=== PATIENT | male | born 1935 | race Caucasian/White ===

== ENCOUNTER → 2019-08-17 15:06 | Outpatient (BNVA) | payer MEDICARE, SELFPAY | PROVIDERS: Family Provider Family Medicine; PCP Family Medicine; Visit Provider Urology | DX: R97.20 Elevated prostate specific antigen [PSA] (principal); N40.1 Benign prostatic hyperplasia with lower urinary tract symptoms | CPT/HCPCS: 81001 ==

== ENCOUNTER 2021-04-10 14:55 | Outpatient (CLI) | payer MEDICARE, SELFPAY ==
[2021-04-10 15:48] LABS: INR 3.47 (0.8-1.2)
== END 2021-04-10 14:56 | disposition home or self-care (01) ==
PROVIDERS: Family Provider Family Medicine; PCP Family Medicine; Visit Provider Family Medicine
DX: Z79.01 Long term (current) use of anticoagulants (principal)
CPT/HCPCS: 85610

== ENCOUNTER → 2021-04-11 09:24 | Outpatient (BNVA) | payer MEDICARE, SELFPAY | PROVIDERS: Family Provider Family Medicine; PCP Family Medicine; Visit Provider Nurse Practitioner Family | DX: N40.1 Benign prostatic hyperplasia with lower urinary tract symptoms (principal); R97.20 Elevated prostate specific antigen [PSA] | CPT/HCPCS: 81003; 84153 ==

== ENCOUNTER 2021-04-19 15:07 | Outpatient (CLI) | payer MEDICARE, SELFPAY ==
[2021-04-19 16:40] LABS: INR 6.97 (0.8-1.2)
== END 2021-04-19 15:08 | disposition home or self-care (01) ==
PROVIDERS: Family Provider Family Medicine; PCP Family Medicine; Visit Provider Family Medicine
DX: Z79.01 Long term (current) use of anticoagulants (principal)
CPT/HCPCS: 85610

== ENCOUNTER 2021-04-23 15:37 | Outpatient (CLI) | payer MEDICARE, SELFPAY ==
[2021-04-23 17:37] LABS: INR 3.33 (0.8-1.2)
== END 2021-04-23 15:38 | disposition home or self-care (01) ==
PROVIDERS: PCP Family Medicine; Visit Provider Internal Medicine Cardiovascular Disease
DX: Z79.01 Long term (current) use of anticoagulants (principal)
CPT/HCPCS: 85610

== ENCOUNTER 2021-04-26 11:47 | Outpatient (CLI) | payer MEDICARE, SELFPAY ==
[2021-04-26 12:11] LABS: INR 2.08 (0.8-1.2)
== END 2021-04-26 11:48 | disposition home or self-care (01) ==
LOC: LAB 11:51
PROVIDERS: PCP Family Medicine; Visit Provider Internal Medicine Cardiovascular Disease
DX: Z79.01 Long term (current) use of anticoagulants (principal)
CPT/HCPCS: 85610

== ENCOUNTER 2021-05-01 12:05 | Outpatient (CLI) | payer MEDICARE, SELFPAY ==
[2021-05-01 12:32] LABS: INR 3.07 (0.8-1.2)
== END 2021-05-01 12:06 | disposition home or self-care (01) ==
LOC: LAB 12:08
PROVIDERS: PCP Family Medicine; Visit Provider Internal Medicine Cardiovascular Disease
DX: Z79.01 Long term (current) use of anticoagulants (principal)
CPT/HCPCS: 85610

== ENCOUNTER 2021-05-08 11:36 | Outpatient (CLI) | payer MEDICARE, SELFPAY ==
[2021-05-08 12:30] LABS: INR 5.35 (0.8-1.2)
== END 2021-05-08 11:37 | disposition home or self-care (01) ==
LOC: LAB 11:39
PROVIDERS: PCP Family Medicine; Visit Provider Internal Medicine Cardiovascular Disease
DX: Z79.01 Long term (current) use of anticoagulants (principal)
CPT/HCPCS: 85610

== ENCOUNTER 2021-05-10 12:45 | Outpatient (CLI) | payer MEDICARE, SELFPAY ==
[2021-05-10 13:17] LABS: INR 2.84 (0.8-1.2)
== END 2021-05-10 12:46 | disposition home or self-care (01) ==
LOC: LAB 12:48
PROVIDERS: PCP Family Medicine; Visit Provider Internal Medicine Cardiovascular Disease
DX: Z79.01 Long term (current) use of anticoagulants (principal)
CPT/HCPCS: 85610

== ENCOUNTER 2021-05-17 16:52 | Outpatient (CLI) | payer MEDICARE, SELFPAY ==
[2021-05-17 17:43] LABS: INR 2.49 (0.8-1.2)
== END 2021-05-17 16:53 | disposition home or self-care (01) ==
LOC: LAB 16:58
PROVIDERS: PCP Family Medicine; Visit Provider Internal Medicine Cardiovascular Disease
DX: Z79.01 Long term (current) use of anticoagulants (principal)
CPT/HCPCS: 81003; 85610

== ENCOUNTER 2021-05-24 14:51 | Outpatient (CLI) | payer MEDICARE, SELFPAY ==
[2021-05-24 15:25] LABS: INR 2.96 (0.8-1.2)
== END 2021-05-24 14:52 | disposition home or self-care (01) ==
LOC: RAD 14:56
PROVIDERS: PCP Family Medicine; Visit Provider Internal Medicine Cardiovascular Disease
DX: Z79.01 Long term (current) use of anticoagulants (principal)
CPT/HCPCS: 85610

== ENCOUNTER 2021-06-07 13:50 | Outpatient (CLI) | payer MEDICARE, SELFPAY ==
[2021-06-07 14:59] LABS: INR 2.34 (0.8-1.2)
== END 2021-06-07 13:51 | disposition home or self-care (01) ==
LOC: LAB 13:58
PROVIDERS: PCP Family Medicine; Visit Provider Internal Medicine Cardiovascular Disease
DX: Z79.01 Long term (current) use of anticoagulants (principal)
CPT/HCPCS: 85610

== ENCOUNTER 2021-06-21 13:00 | Outpatient (CLI) | payer MEDICARE, SELFPAY ==
[2021-06-21 13:26] LABS: INR 4.18 (0.8-1.2)
== END 2021-06-21 13:01 | disposition home or self-care (01) ==
LOC: LAB 13:03
PROVIDERS: PCP Family Medicine; Visit Provider Internal Medicine Cardiovascular Disease
DX: Z79.01 Long term (current) use of anticoagulants (principal)
CPT/HCPCS: 85610

== ENCOUNTER 2021-06-28 14:42 | Outpatient (CLI) | payer MEDICARE, SELFPAY ==
[2021-06-28 16:57] LABS: INR 2.92 (0.8-1.2)
== END 2021-06-28 14:43 | disposition home or self-care (01) ==
LOC: LAB 14:48
PROVIDERS: PCP Family Medicine; Visit Provider Internal Medicine Cardiovascular Disease
DX: Z79.01 Long term (current) use of anticoagulants (principal)
CPT/HCPCS: 85610

== ENCOUNTER 2021-07-05 17:46 | Outpatient (CLI) | payer MEDICARE, SELFPAY ==
[2021-07-05 18:45] LABS: INR 2.43 (0.8-1.2)
== END 2021-07-05 17:47 | disposition home or self-care (01) ==
LOC: LAB 17:52
PROVIDERS: PCP Family Medicine; Visit Provider Internal Medicine Cardiovascular Disease
DX: Z79.01 Long term (current) use of anticoagulants (principal)
CPT/HCPCS: 85610

== ENCOUNTER 2021-07-12 11:16 | Outpatient (CLI) | payer MEDICARE, SELFPAY | END 2021-07-12 11:17 | disposition home or self-care (01) | PROVIDERS: PCP Family Medicine; Visit Provider Internal Medicine Cardiovascular Disease | DX: Z79.01 Long term (current) use of anticoagulants (principal); Z51.81 Encounter for therapeutic drug level monitoring | CPT/HCPCS: 85610 ==

== ENCOUNTER 2021-07-19 13:05 | Outpatient (CLI) | payer MEDICARE, SELFPAY ==
[2021-07-19 13:49] LABS: INR 1.98 (0.8-1.2)
== END 2021-07-19 13:06 | disposition home or self-care (01) ==
PROVIDERS: PCP Family Medicine; Visit Provider Internal Medicine Cardiovascular Disease
DX: Z79.01 Long term (current) use of anticoagulants (principal)
CPT/HCPCS: 85610

== ENCOUNTER 2022-01-14 14:48 | Emergency (ER) | payer MEDICARE, SELFPAY ==
[2022-01-14] VITALS (12 sets, daily range): BP systolic 108–149; BP diastolic 63–79; PULSE 60–81; RESP 16–28; TEMP 36.7; O2SAT 81–98
--- NOTE | 2022-01-14 14:50 | W.ED.WEAKNES ---
HPI - Weakness General: Chief complaint: Weakness Stated complaint: WEAKNESS Time Seen by Provider: 01/14/22 14:49 Limitations: altered mental status (?baseline dementia) History of Present Illness: Mr. Urrutia is a 86-year-old gentleman with history of chronic anticoagulation use presenting to the emergency department due to fall with generalized weakness. Fall was 3 days ago and circumstances are somewhat unclear. He endorses back pain since that time and also abdominal pain. Per supplemental history he was working with physical therapy and they noted him to be significantly weaker than normal. He has noted dark urine. History otherwise limited by mental status. Review of Systems General: Reports: ROS unobtainable due to mental status PFSH ED PFSH: Medical History (Updated 01/14/22 @ 19:49 by Jeffrey Mejia MD) Atrial fibrillation BPH loc w urin obs/LUTS Elevated PSA Essential hypertension T12 compression fracture Venous stasis dermatitis Surgical History History of appendectomy History of bilateral cataract extraction History of tonsillectomy History of total knee replacement History of total left hip arthroplasty Family History Mother , AT AGE 98 No problems noted. Father , AT 96 No problems noted. Other Cancer Stroke Social History Smoking and tobacco status: never smoked Alcohol intake: current Alcohol intake frequency: 3 or more drinks per day Marital status: Current occupational status: retired History of recent travel: No Physical Exam Const: COMMON NORMALS: alert GENERAL APPEARANCE: cooperative and well developed HENMT: COMMON NORMALS: normocephalic and atraumatic HEAD & SCALP: normocephalic and atraumatic THROAT: posterior oropharynx normal OTHER: No mark signs or raccoon eyes. No hemotympanum. No otorrhea or rhinorrhea. Jaw alignment normal. Dentition baseline. No obvious bony step-offs. No septal hematoma. No evidence of ocular entrapment. Eye: COMMON NORMALS: conjunctivae normal CONJUNCTIVA: Yes conjunctivae normal SCLERA: sclerae normal Neck/C-Spine: COMMON NORMALS: supple GENERAL: Yes trachea midline Chest: CHEST: Yes tenderness Resp: COMMON NORMALS: clear to auscultation bilaterally EFFORT & INSPECTION: Yes able to speak in complete sentences AUSCULTATION: clear to auscultation bilaterally Cardio: COMMON NORMALS: regular rate and regular rhythm RATE: regular rate RHYTHM: regular rhythm GI: COMMON NORMALS: Soft to palpation PALPATION: Yes Soft to palpation, Yes Tenderness to palpation present (GI), No Guarding due to palpation present (GI) and No Rigid due to palpation Extremity: GENERAL: Yes normal exam except as noted and No edema Neuro: COMMON NORMALS: moves all extremities SENSORIUM/ORIENTATION: Yes alert and Yes Orientation impaired Course Vital Signs: Vital signs: Vital Signs Temperature 98.1 F 01/14/22 14:55 Pulse Rate 61 01/14/22 20:00 Respiratory Rate 18 01/14/22 20:00 Blood Pressure 148/70 01/14/22 20:00 Pulse Oximetry 98 01/14/22 20:00 Oxygen Delivery Me thod 01/14/22 14:55 MDM - Weakness Medical Decision Making 86-year-old lady presenting with generalized symptoms after a fall. Limited history secondary to patient's mental status. Head to toe exam performed as above. EKG shows electronically paced rhythm Labs notable for no leukocytosis, macrocytic anemia present. Metabolic panel without significant derangement to explain symptoms, creatinine is mildly elevated though most recent baseline is very remote. 2-hour delta troponin is negative. CT head, cervical spine negative for acute traumatic injury. CT chest abdomen pelvis notable for acute compression fracture of the superior endplate of T12 which likely explains some degree of patient symptoms. TLSO brace ordered. The results of ED evaluation were discussed with the patient including prescriptions and/or symptomatic cares (if applicable) including appropriate and responsible use, followup plan, and return precautions. The patient verbalized understanding and felt safe for discharge.. Medical Records I reviewed the patient's medical records. Lab Data I reviewed the patient's lab results. : 01/14/22 15:10 01/14/22 15:10 Radiology Impressions Cervical Spine CT 01/14/22 15:08 IMPRESSION: No acute findings. Chest/Abdomen/Pelvis CT 01/14/22 15:08 IMPRESSION: 1. Acute compression fracture of the superior endplate of T12. 2. Chronic appearing moderate compression deformity of T11. IMPRESSION: No acute traumatic intra-abdominal findings. Head CT 01/14/22 15:08 IMPRESSION: 1. No acute intracranial abnormality. 2. Advanced diffuse cerebral atrophy. Laboratory Results WBC 6.3 10^3/uL (4.0-10.0) 01/14/22 15:10 RBC 3.27 10^6/uL (4.1-5.3) L 01/14/22 15:10 Hgb 11.2 g/dL (11.7-16.6) L 01/14/22 15:10 Hct 33.9 % (42.0-52.0) L 01/14/22 15:10 MCV 103.7 fl (80-94) H 01/14/22 15:10 MCH 34.3 pg (28.0-34.0) H 01/14/22 15:10 MCHC 33.0 g/dL (30.0-36.0) 01/14/22 15:10 RDW 14.1 % (12.1-15.1) 01/14/22 15:10 Plt Count 148 10^3/cmm (130-400) 01/14/22 15:10 MPV 9.7 fL (7.4-10.4) 01/14/22 15:10 Neut % (Auto) 76.7 % 01/14/22 15:10 Lymph % (Auto) 13.5 % 01/14/22 15:10 [place] % (Auto) 8.4 % 01/14/22 15:10 Eos % (Auto) 0.5 % 01/14/22 15:10 Baso % (Auto) 0.3 % 01/14/22 15:10 Neut # (Auto) 4.82 10^3/uL (1.8-7.7) 01/14/22 15:10 Lymph # (Auto) 0.9 10^3/uL (0.8-4.8) 01/14/22 15:10 [place] # (Auto) 0.5 10^3/uL (0.2-0.9) 01/14/22 15:10 Eos # (Auto) 0.0 10^3/uL (0.0-0.8) 01/14/22 15:10 Baso # (Auto) 0.0 10^3/uL (0.0-0.1) 01/14/22 15:10 Nucleated RBC % (auto) 0 % 01/14/22 15:10 Nucleated RBCs # 0.0 /100WBC 01/14/22 15:10 PT 30.50 SECONDS (12.1-14.9) H 01/14/22 16:45 INR 2.89 (0.8-1.2) H 01/14/22 16:45 APTT 51.1 SECONDS (23.9-36.7) H 01/14/22 16:45 Sodium 138 mmol/L (136-145) 01/14/22 15:10 Potassium 3.4 mmol/L (3.5-5.1) L 01/14/22 15:10 Chloride 103 mmol/L (98-107) 01/14/22 15:10 Carbon Dioxide 26 mmol/L (22-29) 01/14/22 15:10 Anion Gap 12.4 (5-19) 01/14/22 15:10 BUN 22 mg/dL (8-23) 01/14/22 15:10 Creatinine 0.7 mg/dL (0.7-1.2) 01/14/22 15:10 GFR Calculation Not Reportable 01/14/22 15:10 Glucose 141 mg/dL (65-115) H 01/14/22 15:10 Calculated Osmolality 292 mOsm/kg (285-295) 01/14/22 15:10 Lactate 1.3 mmol/L (0.5-2.2) 01/14/22 15:10 Calcium 8.6 mg/dL (8.5-10.5) 01/14/22 15:10 Total Bilirubin 1.5 mg/dL (0.15-1.2) H 01/14/22 15:10 AST 16 U/L (0-40) 01/14/22 15:10 ALT 11 U/L (0-41) 01/14/22 15:10 Alkaline Phosphatase 110 U/L (40-130) 01/14/22 15:10 Troponin T Baseline 37 ng/L (0-15) H 01/14/22 15:10 Troponin T 120 Minute 39.63 ng/L (0-15) H 01/14/22 17:17 Delta Troponin T 2.63 ABS# (0-10) 01/14/22 17:17 Total Protein 6.1 g/dL (6.6-8.7) L 01/14/22 15:10 Albumin 3.6 g/dL (3.5-5.2) 01/14/22 15:10 Globulin 2.5 g/dL (1.3-4.6) 01/14/22 15:10 Lipase 21 U/L (13-60) 01/14/22 15:10 Discharge Plan Discharge Patient Disposition: Home Clinical Impression: T12 compression fracture Condition: Stable Prescriptions: New oxycodone 5 mg tablet 5 mg PO Q4H PRN (Reason: pain) Qty: 10 0RF No Action furosemide [Lasix] 40 mg tablet 40 mg PO DAILY propranolol 10 mg tablet 10 mg PO TID PRN (Reason: TREMORS) donepezil 5 mg tablet 5 mg PO BEDTIME Miralax 17 gram Powder In Packet 17 g PO DAILY olanzapine 5 mg tablet 5 mg PO BEDTIME ibuprofen 200 mg Tablet 200 - 800 mg PO Q8H PRN (Reason: Pain) amoxicillin-pot clavulanate 875-125 mg tablet 1 tab PO BID Rx Instructions: RX FILLED 01/10/22 7D/S Vitamin D3 25 mcg (1,000 unit) Capsule 25 mcg PO DAILY Xarelto 20 mg tablet 20 mg PO DAILY Discharge Orders: Discharge ED (Routine); Ordered 01/14/22 Ordered By: Jeffrey Mejia Other Ambulatory Orders: DME: Miscellaneous (Order) Location: None Selected Ordered By: Jeffrey Mejia Referrals: Rosenda García DO [Primary Care Provider] - Discharge Diet: Usual diet Discharge Activity: Increase activity as tolerated Patient Instructions: Vertebral Compression Fracture (ED), Fall Prevention for Older Adults (ED), Thoracolumbosacral Orthosis (DC), Opioid Safety, Pain Management Activity Restrictions/Additional Instructions: , OrThank you for visiting the emergency department. You were seen and evaluated for generalized weakness and back pain. The exact cause of your generalized weakness is unclear though may be related to viral syndrome or mild dehydration. You are found to have a T12 compression fracture which is likely from your fall. This likely explains her back pain. I will message case management for follow-up with orthopedic spine. You may use [id number] medications for symptoms such as Tylenol and ibuprofen. Please use this cautiously and ensure that you are taking a proton pump inhibitor or H2 josesito if taking ibuprofen frequently. I will also prescribe oxycodone for severe pain. Use this extremely cautiously as it can cause respiratory and central nervous system depression as well as low blood pressure, balance problems, and a common side effect is constipation for which you should take MiraLAX or other stool softener while taking opioids. Please return to the emergency department for any new neurologic symptoms, or anything else that you are concerned about a feel needs emergency department evaluation. Coding Level of Care Code ED [employer] for Violeta Jacob
--- NOTE | 2022-01-14 15:08 | CTR_ITS ---
PROCEDURE INFORMATION: Exam: CT Cervical Spine Without Contrast Exam date and time: 01/14/2022 4:16 PM Age: 86 years old Clinical indication: Injury or trauma; Fall; Blunt trauma and sprain or strain, cervical ligaments; Additional info: Fall on warfarin, AMS TECHNIQUE: Imaging protocol: Computed tomography of the cervical spine without contrast. Radiation optimization: All CT scans at this facility use at least one of these dose optimization techniques: automated exposure control; mA and/or kV adjustment per patient size (includes targeted exams where dose is matched to clinical indication); or iterative reconstruction. COMPARISON: CT angio chest PE protcl [id number] 03/27/2018 12:22 PM RADIATION DOSE METRICS: Total DLP (mGy-cm): 266.1 FINDINGS: Bones/joints: No acute fracture. No spinal malalignment. No significant disc protrusion. No severe spinal canal stenosis. Lungs: Lung apices are normal. Soft tissues: Unremarkable. CT/CT cervical spin wo con* [id number] IMPRESSION: No acute findings.
--- NOTE | 2022-01-14 15:08 | CTR_ITS ---
PROCEDURE INFORMATION: Exam: CT Head Without Contrast Exam date and time: 01/14/2022 4:16 PM Age: 86 years old Clinical indication: Injury or trauma; Fall; Blunt trauma (contusions or hematomas); Additional info: Fall on warfarin, AMS TECHNIQUE: Imaging protocol: Computed tomography of the head without contrast. Radiation optimization: All CT scans at this facility use at least one of these dose optimization techniques: automated exposure control; mA and/or kV adjustment per patient size (includes targeted exams where dose is matched to clinical indication); or iterative reconstruction. COMPARISON: No relevant prior studies available. RADIATION DOSE METRICS: Total DLP (mGy-cm): 266.1 FINDINGS: Brain: No hemorrhage. No edema. Advanced diffuse cerebral atrophy. No significant white matter disease. No mass effect. Cerebral ventricles: No ventriculomegaly. Paranasal sinuses: Visualized sinuses are unremarkable. No fluid levels. Mastoid air cells: Visualized mastoid air cells are well aerated. Bones/joints: Unremarkable. No acute fracture. Soft tissues: Unremarkable. CT/CT head wo con* [id number] IMPRESSION: 1. No acute intracranial abnormality. 2. Advanced diffuse cerebral atrophy.
--- NOTE | 2022-01-14 15:08 | ECG_ITS ---
[facility] Test Date: 2022-01-14 Pat Name: Jarett Urrutia Department: Room: Gender: Male Senior Analytical Chemist: : 1935 Requested By: Jeffrey Mejia Order Number: [id number] Leigh MD: Fadia López M.D. Measurements Intervals [place] Rate: 60 P: MT: QRS: -57 QRSD: 149 T: 118 QT: 464 QTc: 464 Interpretive Statements ELECTRONIC VENTRICULAR PACEMAKER ABNORMAL RHYTHM ECG Compared to ECG 03/27/2018 11:12:27 Atrial fibrillation no longer present Myocardial infarct finding no longer present Electronically Signed On 01-15-2022 12:02:25 GENERAL LABOR by Fadia López M.D. [id number]
--- NOTE | 2022-01-14 15:08 | CTR_ITS ---
PROCEDURE INFORMATION: Exam: CT Chest With Contrast; Diagnostic Exam date and time: 01/14/2022 4:24 PM Age: 86 years old Clinical indication: Injury or trauma; Generalized; Blunt trauma (contusions or hematomas); Additional info: Fall on warfarin, AMS, back and abd pain TECHNIQUE: Imaging protocol: Diagnostic computed tomography of the chest with contrast. Contrast material: OMNI 350; Contrast volume: 100 ml; Contrast route: INTRAVENOUS (IV); COMPARISON: CT angio chest PE prot [id number] 03/27/2018 12:22 PM RADIATION DOSE METRICS: Total DLP (mGy-cm): 1144.62 FINDINGS: Lungs: Curvilinear bibasilar atelectasis or scarring. No consolidation. No masses. Pleural spaces: No pneumothorax. No pleural effusion. Heart: Cardiomegaly. No pericardial effusion. Lymph nodes: No enlarged lymph nodes. Vasculature: No aortic aneurysm. Bones/joints: Acute compression fracture of the superior endplate of T12. Chronic appearing moderate compression deformity of T11. No additional fractures are seen. Soft tissues: Unremarkable. PROCEDURE INFORMATION: Exam: CT Abdomen And Pelvis With Contrast Exam date and time: 01/14/2022 4:24 PM Age: 86 years old Clinical indication: Injury or trauma; Generalized; Blunt trauma (contusions or hematomas); Additional info: Fall on warfarin, AMS, back and abd pain TECHNIQUE: Imaging protocol: Computed tomography of the abdomen and pelvis with contrast. Contrast material: OMNI 350; Contrast volume: 100 ml; Contrast route: INTRAVENOUS (IV); COMPARISON: CT angio chest PE prot [id number] 03/27/2018 12:22 PM RADIATION DOSE METRICS: Total DLP (mGy-cm): 1144.62 FINDINGS: Liver: Normal. No mass. Gallbladder and bile ducts: Punctate cholelithiasis. No ductal dilation. Pancreas: Normal. No ductal dilation. Spleen: Normal. No splenomegaly. Adrenal glands: A couple left adrenal nodules noted measuring up to 1.1 cm. Right adrenal gland is unremarkable. Kidneys and ureters: Normal. No hydronephrosis. Stomach and bowel: Colonic diverticulosis. No obstruction. No mucosal thickening. Appendix: No evidence of appendicitis. Intraperitoneal space: No free air. No significant fluid collection. Vasculature: No abdominal aortic aneurysm. Lymph nodes: No enlarged lymph nodes. Urinary bladder: Unremarkable as visualized. Reproductive: Unremarkable as visualized. Bones/joints: Left total hip arthroplasty noted. No acute fracture. Soft tissues: Unremarkable. CT/CT chest abd pel w con* IMPRESSION: 1. Acute compression fracture of the superior endplate of T12. 2. Chronic appearing moderate compression deformity of T11. IMPRESSION: No acute traumatic intra-abdominal findings.
[2022-01-14 15:24] LABS: Basophils % 0.3 %; Eosinophils % 0.5 %; Hematocrit 33.9 % (42.0-52.0); Hemoglobin 11.2 g/dL (11.7-16.6); Lymphocytes # 0.9 10^3/uL (0.8-4.8); Lymphocytes % 13.5 %; Mean Corpuscular Hemoglobin 34.3 pg (28.0-34.0); Mean Corpuscular Volume 103.7 fl (80-94); Mean Platelet Volume 9.7 fL (7.4-10.4); Monocytes # 0.5 10^3/uL (0.2-0.9); Monocytes % 8.4 %; Neutrophils # 4.82 10^3/uL (1.8-7.7); Neutrophils % 76.7 %; Nucleated Red Blood Cells % 0 %; Platelet Count 148 10^3/cmm (130-400); Red Blood Count 3.27 10^6/uL (4.1-5.3); Red Cell Distribution Width 14.1 % (12.1-15.1); White Blood Count 6.3 10^3/uL (4.0-10.0)
--- NOTE | 2022-01-14 15:51 | PC.PHAR ---
PT UNABLE TO VERIFY MEDICATIONS-PTS STATES THEY HAVE HOME HEALTH WITH [facility] [phone] TERI WITH [facility] [phone] STATES THEY HAVE BEEN SETTING UP LASIX 40MG PO DAILY PHARMACY LAST FILLED 01/08/22 FOR 40MG PO EVERY 5TH DAY [facility] STATES THEY HAVE A CALL INTO THE PROVIDERS OFFICE TO SEE WHICH ONE THE PT IS SUPPOSE TO BE ON-PTS STATES SOMETIMES THE PT WILL TAKE IBUPROFEN PRN-[facility] STATE THE PTS FINASTERIDE 5MG DAILY WAS DCED ON 01/08/22-NOTES ARE MADE IN THE PHARMACY COMMENTS
[2022-01-14 15:53] LABS: Alanine Aminotransferase 11 U/L (0-41); Albumin Level 3.6 g/dL (3.5-5.2); Alkaline Phosphatase 110 U/L (40-130); Anion Gap 12.4 (5-19); Aspartate Amino Transferase 16 U/L (0-40); Blood Urea Nitrogen 22 mg/dL (8-23); Calcium 8.6 mg/dL (8.5-10.5); Carbon Dioxide 26 mmol/L (22-29); Chloride 103 mmol/L (98-107); Globulin 2.5 g/dL (1.3-4.6); Glucose 141 mg/dL (65-115); Lipase 21 U/L (13-60); Osmolality Calculated 292 mOsm/kg (285-295); Potassium 3.4 mmol/L (3.5-5.1); Sodium 138 mmol/L (136-145); Total Bilirubin 1.5 mg/dL (0.15-1.2); Total Protein 6.1 g/dL (6.6-8.7)
[2022-01-14 15:54] LABS: Lactate (Lactic Acid level) 1.3 mmol/L (0.5-2.2)
[2022-01-14 15:55] LABS: Troponin(5th) Baseline 37 ng/L (0-15)
[2022-01-14] MEDS: iohexol 350 mg/mL 500 mL Btl (per mL) IV (16:42)
--- NOTE | 2022-01-14 17:08 | ECG_ITS ---
[facility] Test Date: 2022-01-14 Pat Name: Jarett Urrutia Department: Room: Gender: Male Rn Travel: : 1935 Requested By: Jeffrey Mejia Order Number: [id number] Leigh MD: Fadia López M.D. Measurements Intervals [place] Rate: 60 P: 240 AK: 149 QRS: -64 QRSD: 163 T: 93 QT: 490 QTc: 492 Interpretive Statements ELECTRONIC VENTRICULAR PACEMAKER ABNORMAL RHYTHM ECG Compared to ECG 01/14/2022 15:29:39 No significant changes Electronically Signed On 01-15-2022 12:10:59 COMMUNITY CHEST OFFICER by Fadia López M.D. [id number]
[2022-01-14 17:25] LABS: INR 2.89 (0.8-1.2)
[2022-01-14 17:26] LABS: Partial Thromboplastin Time 51.1 SECONDS (23.9-36.7)
[2022-01-14 18:05] LABS: Troponin 5 2HR 39.63 ng/L (0-15)
[2022-01-14] MEDS: sodium chloride 0.9% 500 ML 999 ML IV (18:06)
[2022-01-14 18:13] LABS: Troponin 5 2HR Delta 2.63 ABS# (0-10)
== END 2022-01-14 21:39 | disposition home or self-care (01) ==
PROVIDERS: Emergency Provider Emergency Medicine; PCP Family Medicine
DX: S22.089A Unspecified fracture of T11-T12 vertebra, initial encounter for closed fracture (principal); W19.XXXA Unspecified fall, initial encounter; Z79.01 Long term (current) use of anticoagulants; S22.080A Wedge compression fracture of T11-T12 vertebra, initial encounter for closed fracture
CPT/HCPCS: 36415; 51701; 70450; 71260; 72125; 74177; 80053; 83605; 83690; 84484; 85025; 85610; 85730; 93005; 96360; 99285; J7040; Q9967